=== PATIENT | female | born 1975 | race Caucasian/White ===

== ENCOUNTER 2016-05-06 17:35 | Emergency (ER) | payer OTHER ==
[2016-05-06 18:03] LABS: BASO # 0.1 10_X3_uL (0.0-0.1); BASO % 0.6 % (0.1-1.2); EOS # 0.1 10_X3_uL (0.0-0.4); EOS % 0.5 % (0.7-5.8); GRAN # 7.2 10_X3_uL (1.6-6.1); GRAN % 76.5 % (34.0-71.1); HEMOGLOBIN 12.6 g/dL (11.2-15.7); LYMPH # 1.5 10_X3_uL (1.2-3.7); LYMPH % 16.2 % (19.3-51.7); MEAN CORPUSCULAR VOLUME 77.8 fL (79-95); MEAN PLATELET VOLUME 11.6 fl (7.5-11.5); MONO # 0.6 10_X3_uL (0.2-0.9); MONO % 6.2 % (4.7-12.5); PLATELET COUNT 306 x10_3/uL (182-369); RED CELL DISTRIBUTION WIDTH 17.4 % (11.7-14.4); WHITE BLOOD COUNT 9.4 x10_3/uL (4.0-10.0)
[2016-05-06 18:19] LABS: ALBUMIN 4.3 gm/dL (3.4-5.0); ALKALINE PHOSPHATASE 73 U/L (50-136); ALT/SGPT 37 U/L (3.5-33.9); AST/SGOT 58 U/L (7.04-26.96); BILIRUBIN,TOTAL 0.42 mg/dL (0.0-1.0); BLOOD UREA NITROGEN 22 mg/dL (7-18); CARBON DIOXIDE 20 mmol/L (21-32); CREATININE 0.7 mg/dL (0.6-1.3); GLUCOSE,RANDOM 157 mg/dL (70-99); MAGNESIUM 2.1 mg/dL (1.8-2.4); SODIUM 138 mmol/L (136-145); TOTAL PROTEIN 7.1 gm/dL (6.4-8.2)
[2016-05-06 19:33] LABS: PARTIAL THROMBOPLASTIN TIME 23.2 SECONDS (21.3-29.3); PROTHROMBIN TIME (PATIENT) 10.8 SECONDS (9.9-11.1)
[2016-05-06 19:44] LABS: URINE BILIRUBIN NEGATIVE (NEGATIVE); URINE BLOOD TRACE (NEGATIVE); URINE GLUCOSE (UA) NORMAL (NORMAL); URINE KETONE NEGATIVE (NEGATIVE); URINE LEUKOCYTE ESTERASE TRACE (NEGATIVE); URINE NITRATE NEGATIVE (NEGATIVE); URINE PROTEIN 1+ (NEGATIVE)
[2016-05-06 20:12] LABS: URINE RBC RARE /[HPF] (0-2); URINE SQUAMOUS EPITHELIAL CELL 0-10 /[HPF] (NONE SEEN); URINE WBC 0-5 /[HPF] (0-5)
[2016-05-06 20:13] LABS: URINE BACTERIA FEW (NONE SEEN); URINE FINE GRANULAR CAST 0-2 /[HPF] (NONE SEEN); URINE MUCUS 1+
== END 2016-05-07 | disposition short-term general hospital (02) ==
LOC: ER 17:35
PROVIDERS: Emergency Medicine
DX: R56.9 Unspecified convulsions (principal); I10 Essential (primary) hypertension; F41.9 Anxiety disorder, unspecified; R51 Headache; Q35.9 Cleft palate, unspecified; Z79.899 Other long term (current) drug therapy; Z88.0 Allergy status to penicillin
CPT/HCPCS: 36415; 70450; 80053; 80307; 81001; 82550; 83735; 85025; 85610; 85730; 87040; 93005; 96365; 96366; 96375; 99070; 99285; 99285-25; J1953